=== PATIENT | female | born 1990 | race Caucasian/White ===

== ENCOUNTER 2016-12-03 18:04 | Emergency (ER) | payer MEDICAID ==
[2016-12-03] MEDS ORDERED: DiphenhydrAMINE 50 mg/ml Inj IVP STA (18:55)
[2016-12-03] MEDS ORDERED: Sodium Chloride 0.9% 1,000 ML IV ONE (18:57)
[2016-12-03] MEDS ORDERED: DiphenhydrAMINE 50 mg/ml Inj ONE (19:02)
[2016-12-03] MEDS ORDERED: Sodium Chloride 0.9% 1,000 ML ONE (19:03)
--- NOTE | 2016-12-03 19:11 | C.PDOC ---
History Of Present Illness 26 year old female presents to the ED with complaint of a constant headache associated with photophobia for the past 2 weeks. Patient states having 3 immunization shots prior to starting her new job. She took Tylenol PO to manage pain and get to work. Patient denies fever, nausea, numbness, weakness, tingling , falls, or recent trauma. Time Seen by Provider: 12/03/16 18:38 Chief Complaint (Nursing): Headache History Per: Patient History/Exam Limitations: no limitations Onset/Duration Of Symptoms: Persistent, Other (2 weeks ) Current Symptoms Are (Timing): Still Present Quality: "Pain" Associated Symptoms: Photophobia. denies: Nausea, Vomiting, Extremity Weakness Recent travel outside of the [place]: No Additional History Per: Patient Past Medical History Reviewed: Historical Data, Nursing Documentation, Vital Signs Vital Signs: Last Vital Signs Temp 98.1 F 12/03/16 20:52 Pulse 78 12/03/16 20:52 Resp 18 12/03/16 20:52 BP 124/72 12/03/16 20:52 Pulse Ox 99 12/03/16 20:52 - Medical History PMH: Gastritis Surgical History: Appendectomy, Hernia Repair Family History: States: Unknown Family Hx - Social History Hx Tobacco Use: No Hx Alcohol Use: No Hx Substance Use: No - Immunization History Hx Tetanus Toxoid Vaccination: Yes Hx Influenza Vaccination: Yes Hx Pneumococcal Vaccination: Yes Review Of Systems Constitutional: Negative for: Fever, Chills Eyes: Positive for: Other (photophobia ) Gastrointestinal: Negative for: Nausea, Vomiting Neurological: Positive for: Headache. Negative for: Weakness, Numbness Physical Exam - Physical Exam Appears: Well, Non-toxic, No Acute Distress Skin: Normal Color, Warm, Dry, No Rash Head: Atraumatic, Normacephalic Eye(s): bilateral: Normal Inspection, PERRL, EOMI Ear(s): Bilateral: Normal Oral Mucosa: Moist Throat: No Erythema, No Exudate Neck: Normal ROM, Supple Chest: Symmetrical Cardiovascular: Rhythm Regular, No Friction Rub, No Murmur Respiratory: Normal Breath Sounds, No Accessory Muscle Use, No Rales, No Rhonchi , No Wheezing Gastrointestinal/Abdominal: Soft, No Tenderness, No Guarding, No Rebound Back: Normal Inspection, No CVA Tenderness Extremity: Normal ROM, Capillary Refill (less than 2 seconds ), No Swelling Neurological/Psych: Oriented x3, Normal Speech, Normal Cognition, Normal Motor, Normal Sensation Gait: Steady ED Course And Treatment - Laboratory Results Result Diagrams: 12/03/16 19:17 12/03/16 19:17 O2 Sat by Pulse Oximetry: 100 (Room air) Pulse Ox Interpretation: Normal - CT Scan/US CT Head Other Rad Studies (CT/US): Interpreted By Me, Read By Radiologist, Radiology Report Reviewed CT/US Interpretation: EXAM: CT Head Without Intravenous Contrast. CLINICAL HISTORY: 26 years old, female; Condition or disease; Headache; Headache not specified; Additional info: Headache x 2 week. TECHNIQUE: Axial computed tomography images of the head/brain without intravenous contrast. All CT scans at. this facility use one or more dose reduction techniques, viz.: automated exposure control; ma/kV. adjustment per patient size (including targeted exams where dose is matched to indication; i.e. head);. or iterative reconstruction technique. COMPARISON: No relevant prior studies available. FINDINGS: Brain : No intracranial hemorrhage. No mass. No definite edema. Ventricles: No hydrocephalus. Bones/joints: No acute fracture. Soft tissues: Unremarkable. Sinuses: Few small retention cysts. Mastoid air cells: No mastoid effusion. Orbits: Unremarkable as visualized. IMPRESSION: 1. No acute intracranial abnormality. 2. Incidental/non-acute findings are described above. Medical Decision Making Medical Decision Making: Plan : * Head CT scan * Blood work * IV fluids administered * Toradol 30 mg IVP * Benadryl 25 mg IVP There are signs of meningismus or sepsis. NEck is supple and the patient remains afebrile. On re-exam, the patient reports improvement of symptoms. Lungs are CTA, heart is RRR, ambulatory in the ED with steady gait. abdomen is soft, non-tender and tolerating PO well. Follow up with the medical doctor within 1-2 days. Return if worsened. Disposition - Disposition Referrals: [facility] [Outside] Clinic,Med Surg [Primary Care Provider] - Disposition: HOME/ ROUTINE Disposition Time: 20:00 Condition: GOOD Additional Instructions: Follow up with the medical doctor within 1-2 days. Return if worsened. Prescriptions: Acetaminophen/Butalbital/Caf [Fioricet] 1 tab PO TID PRN #20 tab PRN Reason: Headache Ibuprofen [Motrin] 600 mg PO TID #21 tab Instructions: Migraine Headache (ED) Forms: [employer] (Monegasque) Print Language: IVORIAN - Clinical Impression Clinical Impression: Migraine, Headache - PA / SMALL BUSINESS DIRECTOR / Resident Statement MD/DO has reviewed & agrees with the documentation as recorded. - Scribe Statement The provider has reviewed the documentation as recorded by the Scribe Royce Gross All medical record entries made by the Scribe were at my direction and personally dictated by me. I have reviewed the chart and agree that the record accurately reflects my personal performance of the history, physical exam, medical decision making, and the department course for this patient. I have also personally directed, reviewed, and agree with the discharge instructions and disposition.
[2016-12-03 19:26] LABS: BASO % 0.4 % (0.0-2.0); EOS # 0.1 K/uL (0.0-0.7); EOS % 1.9 % (0.0-4.0); HEMATOCRIT 38.7 % (34.0-47.0); LYMPH # 2.2 K/uL (1.0-4.3); MEAN CELL VOLUME 87.6 fL (81.0-99.0); MEAN CORPUSCULAR HEMOGLOBIN 29.1 pg (27.0-31.0); MEAN CORPUSCULAR HGB CONC 33.2 g/dL (33.0-37.0); MONO # 0.3 K/uL (0.0-0.8); MONO % 6.6 % (0.0-10.0); RED CELL DISTRIBUTION WIDTH 13.5 % (11.5-14.5)
[2016-12-03 19:34] LABS: CHLORIDE 99 mmol/L (98-107); SODIUM 136 mmol/L (132-148)
[2016-12-03 19:35] LABS: POTASSIUM 3.6 mmol/L (3.6-5.2)
[2016-12-03 19:37] LABS: ALKALINE PHOSPHATASE 93 U/L (38-126); AST/SGOT 26 U/L (14-36); BILIRUBIN,TOTAL 0.4 mg/dL (0.2-1.3); BLOOD UREA NITROGEN 15 mg/dL (7-17); CARBON DIOXIDE 26 mmol/L (22-30); GFR AFRICAN-AMERICAN > 60; GLUCOSE,RANDOM 64 mg/dL (65-105)
[2016-12-03 19:38] LABS: ALT/SGPT 40 U/L (9-52); CALCIUM 9.7 mg/dl (8.6-10.4)
--- NOTE | 2016-12-03 20:24 | CT ---
EXAM: CT Head Without Intravenous Contrast CLINICAL HISTORY: 26 years old, female; Condition or disease; Headache; Headache not specified; Additional info: Headache x 2 week TECHNIQUE: Axial computed tomography images of the head/brain without intravenous contrast. All CT scans at this facility use one or more dose reduction techniques, viz.: automated exposure control; ma/kV adjustment per patient size (including targeted exams where dose is matched to indication; i.e. head); or iterative reconstruction technique. COMPARISON: No relevant prior studies available. FINDINGS: Brain: No intracranial hemorrhage. No mass. No definite edema. Ventricles: No hydrocephalus. Bones/joints: No acute fracture. Soft tissues: Unremarkable. Sinuses: Few small retention cysts. Mastoid air cells: No mastoid effusion. Orbits: Unremarkable as visualized. IMPRESSION: 1. No acute intracranial abnormality. 2. Incidental/non-acute findings are described above.
[2016-12-03 20:53] VITALS: BP 124/72; PULSE 78; RESP 18; TEMP 98.1
[2016-12-05 22:31] VITALS: O2SAT 100
== END 2016-12-03 20:53 | disposition home or self-care (01) ==
LOC: SUPCPDRO 18:04 → C.ER 18:04
DX: G43.909 Migraine, unspecified, not intractable, without status migrainosus (principal)
CPT/HCPCS: 70450; 80053; 85025; 96361; 96374; 96375; 99285; J1200; J1885; J2765; J7040

== ENCOUNTER 2017-01-30 17:51 | Emergency (ER) | payer MEDICAID ==
[2017-01-30 18:03] VITALS: BP 135/84; PULSE 90; RESP 18; TEMP 97.5; O2SAT 100
[2017-01-30 18:33] LABS: RBC URINE 1 /hpf (0-3); URINE BACTERIA OCC (<OCC); URINE BILIRUBIN NEGATIVE (NEGATIVE); URINE BLOOD NEGATIVE (NEGATIVE); URINE COLOR Yellow (YELLOW); URINE GLUCOSE (UA) NORMAL (Normal); URINE KETONE NEGATIVE (NEGATIVE); URINE LEUKOCYTE ESTERASE NEG Leu/uL (Negative); URINE PROTEIN NEGATIVE (NEGATIVE); URINE UROBILINOGEN NORMAL mg/dL (0.2-1.0); WBC URINE < 1 /hpf (0-5)
--- NOTE | 2017-01-30 18:41 | C.PDOC ---
History Of Present Illness 26 yr old female presents to the ER with complaints of lower abdominal pain for the past 3 days. Patient reports the pain is constant and when she has sexual intercourse. Also reports of vaginal discharge yesterday. Denies fever, chills, nausea, vomiting, diarrhea, dysuria, weakness or numbness. Time Seen by Provider: 01/30/17 18:10 Chief Complaint (Nursing): Abdominal Pain History Per: Patient History/Exam Limitations: no limitations Onset/Duration Of Symptoms: Days (3) Current Symptoms Are (Timing): Still Present Location Of Pain/Discomfort: Suprapubic Past Medical History Reviewed: Historical Data, Nursing Documentation, Vital Signs Vital Signs: Last Vital Signs Temp 97.5 F L 01/30/17 17:59 Pulse 90 01/30/17 17:59 Resp 18 01/30/17 17:59 BP 135/84 01/30/17 17:59 Pulse Ox 100 01/30/17 19:43 - Medical History PMH: Gastritis Surgical History: Appendectomy, Hernia Repair Family History: States: No Known Family Hx - Social History Hx Tobacco Use: No Hx Alcohol Use: No Hx Substance Use: No - Immunization History Hx Tetanus Toxoid Vaccination: No Hx Influenza Vaccination: No Hx Pneumococcal Vaccination: No Review Of Systems Except As Marked, All Systems Reviewed And Found Negative. Constitutional: Negative for: Fever, Chills Gastrointestinal: Positive for: Abdominal Pain (Suprapubic). Negative for: Nausea, Vomiting, Diarrhea Genitourinary: Positive for: Vaginal Discharge. Negative for: Dysuria Neurological: Negative for: Weakness, Numbness Physical Exam - Physical Exam Appears: Non-toxic, No Acute Distress Skin: Warm, Dry, No Rash Head: Atraumatic, Normacephalic Eye(s): bilateral: Normal Inspection Oral Mucosa: Moist Throat: No Erythema, No Exudate Neck: Normal ROM, Supple Chest: Symmetrical, No Tenderness Cardiovascular: Rhythm Regular Respiratory: Normal Breath Sounds Gastrointestinal/Abdominal: Soft, Tenderness (Suprapubic), No Guarding, No Rebound Back: Normal Inspection, No CVA Tenderness Pelvic: Normal External Exam, No Vaginal Bleeding, Vaginal Discharge (scant yellow/toney discharge), No Cervical Motion Tenderness, No Adnexal Tenderness, 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 Return if worsened Prescriptions: metroNIDAZOLE [Flagyl] 500 mg PO BID #14 tab Instructions: Bacterial Vaginosis (ED), Trichomoniasis (ED) Forms: [employer] (Turkmen) Print Language: MOSOTHO - Clinical Impression Clinical Impression: Bacterial vaginosis - PA / ROLL THREADER OPERATOR / Resident Statement MD/DO has reviewed & agrees with the documentation as recorded. - Scribe Statement The provider has reviewed the documentation as recorded by the Scribe Lori Astudillo All medical record entries made by the Scribe were at my direction and personally dictated by me. I have reviewed the chart and agree that the record accurately reflects my personal performance of the history, physical exam, medical decision making, and the department course for this patient. I have also personally directed, reviewed, and agree with the discharge instructions and disposition.
== END 2017-01-30 19:47 | disposition home or self-care (01) ==
LOC: C.ER 17:51
DX: N76.0 Acute vaginitis (principal)

== ENCOUNTER 2017-05-07 08:36 | Emergency (ER) | payer MEDICAID ==
--- NOTE | 2017-05-07 09:28 | C.PDOC ---
History Of Present Illness 26 year old female presents to the ED for evaluation of a cough, fever, throat pain, headache for the past few days. Patient is here with her son who has the same symptoms. Patient denies nausea, vomit, diarrhea, rash, recent travel. Time Seen by Provider: 05/07/17 08:58 Chief Complaint (Nursing): Cough, Cold, Congestion History Per: Patient History/Exam Limitations: no limitations Onset/Duration Of Symptoms: Days Current Symptoms Are (Timing): Still Present Location Of Pain: Throat, Headache Sick Contacts (Context): Family Member(s) (Son) Associated Symptoms: Fever, Sore Throat, Cough Ear Symptoms: Bilateral: None Recent travel outside of the [place]: No Additional History Per: Patient Past Medical History Reviewed: Historical Data, Nursing Documentation, Vital Signs Vital Signs: Last Vital Signs Temp 97.8 F 05/07/17 08:49 Pulse 104 H 05/07/17 08:49 Resp 20 05/07/17 08:49 BP 141/82 05/07/17 08:49 Pulse Ox 97 05/07/17 09:29 - Medical History PMH: Gastritis Surgical History: Appendectomy, Hernia Repair Family History: States: Unknown Family Hx - Social History Hx Tobacco Use: No Hx Alcohol Use: No Hx Substance Use: No - Immunization History Hx Tetanus Toxoid Vaccination: No Hx Influenza Vaccination: No Hx Pneumococcal Vaccination: No Review Of Systems Constitutional: Negative for: Fever, Chills ENT: Positive for: Throat Pain Cardiovascular: Negative for: Chest Pain Respiratory: Positive for: Cough. Negative for: Shortness of Breath Gastrointestinal: Negative for: Vomiting, Abdominal Pain Skin: Negative for: Rash Neurological: Positive for: Headache. Negative for: Weakness, Numbness Physical Exam - Physical Exam Appears: Non-toxic, No Acute Distress Skin: Normal Color, Warm, Dry, No Rash Head: Atraumatic, Normacephalic Eye(s): bilateral: Normal Inspection Ear(s): Bilateral: Normal Nose: No Discharge, No Deformity Oral Mucosa: Moist Throat: Normal, No Erythema, No Exudate Neck: Normal ROM, Supple Chest: Symmetrical Cardiovascular: Rhythm Regular, No Murmur Respiratory: Normal Breath Sounds, No Rales, No Rhonchi, No Wheezing Gastrointestinal/Abdominal: Soft, No Tenderness, No Guarding, No Rebound Extremity: Normal ROM, No Tenderness, No Swelling Neurological/Psych: Oriented x3, Normal Speech Gait: Steady ED Course And Treatment O2 Sat by Pulse Oximetry: 97 (On RA) Pulse Ox Interpretation: Normal Disposition - Disposition Referrals: Destiny Gross APN [Advanced Practice Nurse] - Disposition: HOME/ ROUTINE Disposition Time: 09:36 Condition: GOOD Additional Instructions: Follow up with the medical doctor within 1-2 days. Return if worsened. Prescriptions: Benzonatate [Tessalon Perles] 100 mg PO TID PRN #21 sgl PRN Reason: Cough Loratadine [Claritin] 10 mg PO DAILY #10 tab predniSONE [Prednisone] 10 mg PO BID #10 tab Instructions: Upper Respiratory Infection (ED) Forms: [employer] (Georgian), Work Excuse - Clinical Impression Clinical Impression: Upper respiratory infection - PA / BRINE TANK OPERATOR / Resident Statement MD/DO has reviewed & agrees with the documentation as recorded. - Scribe Statement The provider has reviewed the documentation as recorded by the Scribe Royce Gross All medical record entries made by the Scribe were at my direction and personally dictated by me. I have reviewed the chart and agree that the record accurately reflects my personal performance of the history, physical exam, medical decision making, and the department course for this patient. I have also personally directed, reviewed, and agree with the discharge instructions and disposition.
[2017-05-07 10:05] VITALS: BP 107/72; PULSE 90; RESP 18; TEMP 97.9; O2SAT 100
== END 2017-05-07 10:01 | disposition home or self-care (01) ==
LOC: C.ER 08:36
DX: J06.9 Acute upper respiratory infection, unspecified (principal)

== ENCOUNTER 2017-12-23 17:44 | Emergency (ER) | payer MEDICAID, OTHER ==
[2017-12-23 18:06] VITALS: RESP 20; BMI 42.9
--- NOTE | 2017-12-23 19:26 | C.PDOC ---
History Of Present Illness 27 year old female, G2, P1, A1, presents to the ED for evaluation. Patient states she had a positive home test yesterday. Patient also c/o diffuse lower abdominal pain for the past 2 days, that worsens with movement. Patient denies fever, chills, nausea, vomit, diarrhea, urinary symptoms, vaginal bleeding, vaginal discharge. Time Seen by Provider: 12/23/17 19:11 Chief Complaint (Nursing): Abdominal Pain History Per: Patient History/Exam Limitations: no limitations Onset/Duration Of Symptoms: Days (2) Current Symptoms Are (Timing): Still Present Location Of Pain/Discomfort: Diffuse, Suprapubic Radiation Of Pain To:: None Quality Of Discomfort: "Pain" Associated Symptoms: denies: Fever, Nausea, Vomiting, Diarrhea, Urinary Symptoms Exacerbating Factors: Movement Alleviating Factors: None Recent travel outside of the [place]: No Additional History Per: Patient Abnormal Vaginal Bleeding: No : 2 Para: 1 Miscarriage: 1 Past Medical History Reviewed: Historical Data, Nursing Documentation, Vital Signs Vital Signs: Last Vital Signs Temp 98.8 F 12/23/17 17:55 Pulse 97 H 12/23/17 17:55 Resp 20 12/23/17 17:55 BP 135/87 12/23/17 17:55 Pulse Ox 100 12/23/17 17:55 - Medical History PMH: Gastritis Surgical History: Appendectomy, Hernia Repair Family History: States: Unknown Family Hx - Social History Hx Tobacco Use: No Hx Alcohol Use: No Hx Substance Use: No - Immunization History Hx Tetanus Toxoid Vaccination: No Hx Influenza Vaccination: No Hx Pneumococcal Vaccination: No Review Of Systems Constitutional: Negative for: Fever, Chills Cardiovascular: Negative for: Chest Pain Respiratory: Negative for: Shortness of Breath Gastrointestinal: Positive for: Abdominal Pain. Negative for: Nausea, Vomiting, Diarrhea Genitourinary: Negative for: Vaginal Discharge, Vaginal Bleeding Musculoskeletal: Negative for: Back Pain Neurological: Negative for: Weakness, Numbness Physical Exam - Physical Exam Appears: Non-toxic, No Acute Distress Skin: Normal Color, Warm, Dry Head: Atraumatic, Normacephalic Eye(s): bilateral: Normal Inspection Neck: Normal ROM, Supple Chest: Symmetrical Cardiovascular: Rhythm Regular Respiratory: Normal Breath Sounds, No Rales, No Rhonchi, No Wheezing Gastrointestinal/Abdominal: Soft, Tenderness (diffuse lower abdomen, suprapubic mostly), No Guarding, No Rebound Extremity: Normal ROM, No Tenderness, No Swelling Neurological/Psych: Oriented x3, Normal Speech, Normal Cognition Gait: Steady ED Course And Treatment - Laboratory Results Result Diagrams: 12/23/17 19:24 12/23/17 19:24 Lab Interpretation: Abnormal (BHCG 747.14) O2 Sat by Pulse Oximetry: 100 (ON RA) Pulse Ox Interpretation: Normal - CT Scan/US Pelvic US Other Rad Studies (CT/US): Read By Radiologist, Radiology Report Reviewed CT/US Interpretation: EXAM: US Pelvis, Complete Transvaginal and Transabdominal. COMPARISON: None provided. CLINICAL HISTORY: Pain. TECHNIQUE: Transvaginal and transabdominal pelvic ultrasound (complete) with image documentation. FINDINGS: ENDOMETRIUM: A thickened endometrium is seen measuring 2.1 cm. UTERUS/CERVIX: The uterus appears within normal limits. No uterine fibroid or other mass evident. RIGHT OVARY: Normal Doppler flow. No abnormal mass. LEFT OVARY: Normal Doppler flow. No abnormal mass. FREE FLUID: Free fluid is seen in the pelvis. MISCELLANEOUS: Correlate with a quantitative beta hCG if clinically warranted and/or menses. No CT evidence of torsion is noted. IMPRESSION: 1. A thickened endometrium is seen measuring 2.1 cm. 2. Correlate with a quantitative beta hCG if clinically warranted and/or menses. 3. No CT evidence of torsion is noted. 4. Free fluid is seen in the pelvis. . Electronically signed on Dec 23, 2017 9:47:19 PM EDT by: Han Leblanc M.D., YOSELIN Certified By ABR & CBCCT. Fellowship Trained MRI and CT Specialist Reevaluation Time: 22:04 Reassessment Condition: Unchanged Medical Decision Making Medical Decision Making: Plan: * Labs * Urine culture * UA * Pelvic US Disposition - Disposition Referrals: [facility] [Outside] Disposition: HOME/ ROUTINE Disposition Time: 22:04 Condition: STABLE Additional Instructions: Keep your appointment with your doctor tomorrow as scheduled. Instructions: Threatened Miscarriage Forms: [employer] (Czech) - Clinical Impression Clinical Impression: Abdominal pain affecting - Scribe Statement The provider has reviewed the documentation as recorded by the Scribe Royce Gross All medical record entries made by the Scribe were at my direction and personally dictated by me. I have reviewed the chart and agree that the record accurately reflects my personal performance of the history, physical exam, medical decision making, and the department course for this patient. I have also personally directed, reviewed, and agree with the discharge instructions and disposition.
[2017-12-23 19:31] LABS: BASO % 0.3 % (0.0-2.0); EOS # 0.1 K/uL (0.0-0.7); EOS % 1.2 % (0.0-4.0); HEMOGLOBIN 12.6 g/dL (11.0-16.0); LYMPH # 2.2 K/uL (1.0-4.3); LYMPH % 41.2 % (20.0-40.0); MEAN CELL VOLUME 86.1 fL (81.0-99.0); MEAN CORPUSCULAR HEMOGLOBIN 28.5 pg (27.0-31.0); MEAN CORPUSCULAR HGB CONC 33.1 g/dL (33.0-37.0); MEAN PLATELET VOLUME 8.7 fL (7.2-11.7); MONO # 0.3 K/uL (0.0-0.8); MONO % 6.5 % (0.0-10.0); NEUT # 2.7 K/uL (1.8-7.0); NEUT % 50.8 % (50.0-75.0); RBC 4.43 Mil/uL (3.80-5.20); RED CELL DISTRIBUTION WIDTH 13.8 % (11.5-14.5); WHITE BLOOD COUNT 5.3 K/uL (4.8-10.8)
[2017-12-23 19:38] LABS: SQUAMOUS EPITHIAL 4 /hpf (0-5); URINE BACTERIA RARE (<OCC); URINE BILIRUBIN NEGATIVE (NEGATIVE); URINE BLOOD NEGATIVE (NEGATIVE); URINE CLARITY Clear (Clear); URINE COLOR Straw (YELLOW); URINE GLUCOSE (UA) NORMAL (Normal); URINE LEUKOCYTE ESTERASE NEG Leu/uL (Negative); URINE PROTEIN NEGATIVE (NEGATIVE); URINE UROBILINOGEN NORMAL mg/dL (0.2-1.0)
[2017-12-23 19:44] LABS: ALB/GLOB RATIO 1.2 (1.0-2.1); ALBUMIN 4.4 g/dL (3.5-5.0); ALT/SGPT 57 U/L (9-52); AST/SGOT 30 U/L (14-36); BLOOD UREA NITROGEN 8 mg/dL (7-17); CALCIUM 9.2 mg/dl (8.6-10.4); GFR NON-AFRICAN AMERICAN > 60
[2017-12-23 22:23] VITALS: BP 131/70; PULSE 81; TEMP 98.1; O2SAT 98
--- NOTE | 2017-12-24 10:51 | US ---
Date of service: 12/23/2017 HISTORY: Pain COMPARISON: None available. TECHNIQUE: Real-time transabdominal pelvic ultrasound was performed. In addition a transvaginal pelvic ultrasound was necessary to better depict pelvic anatomy. FINDINGS: UTERUS: Measures 9.0 x 4.6 x 5.7 cm. Anteverted. ENDOMETRIUM: Measures 2.1 cm in diameter. 2 x 2 x 2 mm cystic structure within the endometrium possibly early gestational sac. CERVIX: The cervix measures approximately 3.2 cm in diameter. RIGHT OVARY: Measures 2.3 x 1.6 x 2.6 cm. Blood flow is demonstrated. LEFT OVARY: Measures 3.2 x 2.1 x 2.4 cm. Blood flow is demonstrated. 1.9 x 1.6 x 1.9 cm suspected corpus luteal cyst. FREE FLUID: Small to moderate pelvic free fluid. OTHER FINDINGS: None. IMPRESSION: 2 x 2 x 2 mm cystic structure within a thickened endometrium, possibly early gestational sac. Recommend correlation with quantitative beta HCG and follow-up as indicated. Small to moderate free fluid in the pelvis cul-de-sac and adnexa regions. Preliminary impression was provided by [employer]. Study marked for PA review.
== END 2017-12-23 22:23 | disposition home or self-care (01) ==
LOC: C.ER 17:44
DX: O26.891 Other specified pregnancy related conditions, first trimester (principal); R10.30 Lower abdominal pain, unspecified; Z3A.00 Weeks of gestation of pregnancy not specified

== ENCOUNTER 2017-12-26 12:47 | Emergency (ER) | payer MEDICAID ==
[2017-12-26 12:47] VITALS: BMI 42.9
[2017-12-26 12:55] VITALS: RESP 16
--- NOTE | 2017-12-26 13:43 | C.PDOC ---
History Of Present Illness 27 y/o female , A1, pt comes into ER for a scheduled re-evaluation of BETA quant after was seen x3 days ago. Pt denies fever, chills, increase abdominal pain, nausea and vomiting, vaginal irritation or vaginal bleeding, UTI sx. Ambulate to Ed for evaluation, not in any apparent distress. Time Seen by Provider: 12/26/17 13:07 Chief Complaint (Nursing): Abdominal Pain History Per: Patient History/Exam Limitations: no limitations Onset/Duration Of Symptoms: Days Current Symptoms Are (Timing): Still Present Past Medical History Reviewed: Historical Data, Nursing Documentation, Vital Signs Vital Signs: Last Vital Signs Temp 98.5 F 12/26/17 12:52 Pulse 91 H 12/26/17 12:52 Resp 16 12/26/17 12:52 BP 115/81 12/26/17 12:52 Pulse Ox 100 12/26/17 12:52 - Medical History PMH: Gastritis Surgical History: Appendectomy, Hernia Repair Family History: States: Unknown Family Hx - Social History Hx Tobacco Use: No Hx Alcohol Use: No Hx Substance Use: No - Immunization History Hx Tetanus Toxoid Vaccination: No Hx Influenza Vaccination: No Hx Pneumococcal Vaccination: No Review Of Systems Except As Marked, All Systems Reviewed And Found Negative. Constitutional: Positive for: Other (re-evaluation for BETA). Negative for: Fever, Chills Gastrointestinal: Negative for: Nausea, Vomiting, Abdominal Pain Physical Exam - Physical Exam Appears: Well, Non-toxic, No Acute Distress Skin: Warm, Dry Head: Normacephalic Eye(s): bilateral: PERRL Oral Mucosa: Moist Throat: No Erythema Neck: Trachea Midline, No Midline Cervical Tenderness, No Paracervical Tenderness Chest: Symmetrical Cardiovascular: Rhythm Regular, No Murmur, No JVD Respiratory: No Decreased Breath Sounds, No Accessory Muscle Use, No Stridor, No Wheezing Gastrointestinal/Abdominal: Soft, No Tenderness, No Distention, No Guarding Back: No CVA Tenderness Extremity: Normal ROM (x4), No Deformity, No Swelling Neurological/Psych: Oriented x3, Normal Speech Gait: Steady ED Course And Treatment - Laboratory Results Urine POC: Positive O2 Sat by Pulse Oximetry: 100 (RA) Pulse Ox Interpretation: Normal Progress Note: Impression: repeat BETA lab. Plans: -- beta-HCG. -- US OB preg. On re-eval, pt is afebrile, hemodynamically stable. Non-toxic. Tolerate PO well in ED. PulseOx 100% on RA. ENT: no acute findings. Uvula midline, no edema. Neck: Supple, (-) JVD. Lungs: CTA B/L, BS equal B/L. Abd: Soft, non- tender. Neurologically intact. beta quant compare from previous visit 2days ago and double, as expected for normal . US results review, visualized this time gestation sac. results review and discussed with pt. Pt has clinical findings c/w abd. pain early . Pt advised and ref. to f/u with [employer]library loan services librarian in 2-3 days for re-eavl. return if any new changes. Disposition Counseled Patient/Family Regarding: Studies Performed, Diagnosis, Need For Followup - Disposition Referrals: [facility] [Outside] [facility] [Outside] Disposition: HOME/ ROUTINE Disposition Time: 14:47 Condition: STABLE Additional Instructions: Encourage fluids vitamins Follow up with [employer] OFFICER in 2-3 days for re-evaluation. return if any new changes. Instructions: - The First Month Forms: [employer] (Slovak) - Clinical Impression Clinical Impression: Abdominal pain affecting , - PA / MERCHANDISE DISPLAYER / Resident Statement / has reviewed & agrees with the documentation as recorded. - Scribe Statement The provider has reviewed the documentation as recorded by the Vincent Narayanan Do All medical record entries made by the Scribe were at my direction and personally dictated by me. I have reviewed the chart and agree that the record accurately reflects my personal performance of the history, physical exam, medical decision making, and the department course for this patient. I have also personally directed, reviewed, and agree with the discharge instructions and disposition.
[2017-12-26 15:03] VITALS: BP 121/84; PULSE 101; TEMP 98.3; O2SAT 98
--- NOTE | 2017-12-26 15:16 | US ---
Date of service: 12/26/2017 HISTORY: pain: Left central. 11/24/2017 suggesting gestational age of approximately 4 weeks 4 days. COMPARISON: Transabdominal and transvaginal pelvic ultrasound 12/23/2017. no prior gestational sac demonstrated previously. TECHNIQUE: Ultrasonography of was performed using transvaginal technique in longitudinal and transverse projections including color Doppler technique. FINDINGS: UTERUS: Measures 9.9 x 5.1 x 6.5 cm. Uterus is enlarged without focal myometrial mass or cysts appreciated. Uterus is anteverted. ENDOMETRIUM: Within the intracavity there is a gestational sac measuring 0.5 cm mean diameter with a small yolk sac likely present. pole is not yet visible. Decidual reaction is developing and appears mildly inhomogeneous but nonfocal. CERVIX: Cervix measures 3.5 cm without focal abnormality related. RIGHT OVARY: Measures 2.8 x 1.7 x 2.3 cm. No solid mass. Normal flow. LEFT OVARY: Measures 2.8 x 3.2 x 3.0 cm. No solid mass. Normal flow. Left ovarian cyst measures 2.3 x 1.7 x 1.9 cm and may reflect corpus luteum cyst. FREE FLUID: No significant free fluid noted. OTHER FINDINGS: None. IMPRESSION: Gestational sac is present with possible yolk sac but no pole at this time but represent interval improvement compared to prior ultrasound demonstrating no gestational sac in the endometrial cavity. No obvious hemorrhage is seen related to the decidual reaction though inhomogeneous echotexture seen intrinsically. Consider probable early 1st trimester potentially viable intrauterine gestation less than 5 weeks estimated gestational age. Failure of gestation is not excluded. No definite ectopic gestation appreciated definitively. Serial beta HCG analysis is recommended as well as follow-up ultrasound in 1 week.
== END 2017-12-26 15:09 | disposition home or self-care (01) ==
LOC: C.ER 12:47
DX: O26.91 Pregnancy related conditions, unspecified, first trimester (principal); R10.9 Unspecified abdominal pain; Z3A.00 Weeks of gestation of pregnancy not specified

== ENCOUNTER 2018-03-23 18:01 | Emergency (ER) | payer MEDICAID ==
[2018-03-23 18:19] VITALS: BMI 41.5
[2018-03-23 18:21] VITALS: O2SAT 100
--- NOTE | 2018-03-23 19:09 | C.PDOC ---
History Of Present Illness 27 year old female LMP 11/22/2017 presents to the ER with suprapubic abdominal pain for the past 3 days with decreased movement. Patient called her wet nurse who told her to come in. Denies urinary complaints, vaginal disc harge, vaginal bleeding, diarrhea, or trauma. Patient reports Hx of appendectomy and hernia repair. Denies fever, chills, night sweats, rash, nausea, vomiting, constipation, diarrhea, or dark/bloody stools. Patient took tylenol for the past yesterday. Time Seen by Provider: 03/23/18 19:09 Chief Complaint (Nursing): Abdominal Pain History Per: Patient History/Exam Limitations: no limitations Onset/Duration Of Symptoms: Days (3) Current Symptoms Are (Timing): Still Present Location Of Pain/Discomfort: Suprapubic Quality Of Discomfort: Unable To Describe Associated Symptoms: Other (Decreased movement) Exacerbating Factors: None Alleviating Factors: None Recent travel outside of the [place]: No Abnormal Vaginal Bleeding: No Past Medical History Reviewed: Historical Data, Nursing Documentation, Vital Signs Vital Signs: Last Vital Signs Temp 97.9 F 03/23/18 18:19 Pulse 105 H 03/23/18 18:19 Resp 18 03/23/18 18:19 BP 113/76 03/23/18 18:19 Pulse Ox 100 03/23/18 18:19 - Medical History PMH: Gastritis Surgical History: Appendectomy, Hernia Repair Family History: States: Unknown Family Hx - Social History Hx Tobacco Use: No Hx Alcohol Use: No Hx Substance Use: No - Immunization History Hx Tetanus Toxoid Vaccination: No Hx Influenza Vaccination: No Hx Pneumococcal Vaccination: No Review Of Systems Except As Marked, All Systems Reviewed And Found Negative. Gastrointestinal: Positive for: Abdominal Pain Physical Exam - Physical Exam Appears: Non-toxic Skin: Normal Color, Warm, Dry Head: Atraumatic, Normacephalic Eye(s): bilateral: Normal Inspection Oral Mucosa: Moist Neck: Normal, Supple Chest: Symmetrical, No Tenderness Cardiovascular: Rhythm Regular Respiratory: Normal Breath Sounds, No Rales, No Rhonchi, No Wheezing Gastrointestinal/Abdominal: Soft, No Tenderness Back: No CVA Tenderness Extremity: Normal ROM (x4) Neurological/Psych: Oriented x3, Normal Speech Gait: Steady ED Course And Treatment - Laboratory Results Result Diagrams: 03/23/18 20:29 03/23/18 20:29 O2 Sat by Pulse Oximetry: 100 (Room air) Pulse Ox Interpretation: Normal Medical Decision Making Medical Decision Making: demise vs Well check Single live IUP w/ HR of 154 w/ good motion labs largely unremarkable no complaint of vaginal d/c or bleeding UA w/ +occ bacteria will rx pt comfortable, in NAD, clear for d/c home, pt is agreeable to plan. Disposition - Disposition Referrals: [facility]Outside] [facility] [Outside] [facility]] Catrina Raymond MD [Staff Provider] - Disposition: HOME/ ROUTINE Disposition Time: 22:22 Condition: GOOD Additional Instructions: ADONAY LUCIANO, thank you for letting us take care of you today. Your provider was Moustapha Lott and you were treated for 17 WEEKS PREG LOWER ABD PAIN. The emergency medical care you received today was directed at your acute symptoms. If you were prescribed any medication, please fill it and take as directed. It may take several days for your symptoms to resolve. Return to the Emergency Department if your symptoms worsen, do not improve, or if you have any other problems. Please contact your doctor or call one of the physicians/clinics you have been referred to that are listed on the Patient Visit Information form that is includ ed in your discharge packet. Bring any paperwork you were given at discharge with you along with any medications you are taking to your follow up visit. Our treatment cannot replace ongoing medical care by a primary care provider outside of the emergency department. [facility] your care today. If you had an X-Ray or CT scan: A Radiologist will review the ED reading if any change in treatment is needed we will contact you. If you had a blood, urine, or wound culture: It will take several days for the results, if any change in treatment is needed we will contact you. If you had an STI test: It will take 48 hours for the results. Please call after 1 week if you have not heard back. Prescriptions: Nitrofurantoin Macrocrystal [Nitrofurantoin] 100 mg PO BID 5 Days #10 capsule Instructions: Urinary Tract Infection, Adult (DC), Urinary Tract Infections in Adults, Medications and , Avoiding Infections in , - The Fifth Month Forms: [facility] (Hebrew) - Clinical Impression Clinical Impression: , UTI (urinary tract infection) - Scribe Statement The provider has reviewed the documentation as recorded by the Scribe Enrike Phillips All medical record entries made by the Scribe were at my direction and personally dictated by me. I have reviewed the chart and agree that the record accurately reflects my personal performance of the history, physical exam, medical decision making, and the department course for this patient. I have also personally directed, reviewed, and agree with the discharge instructions and disposition.
[2018-03-23 20:37] LABS: BASO % 0.2 % (0.0-2.0); EOS # 0.1 K/uL (0.0-0.7); EOS % 2.6 % (0.0-4.0); HEMOGLOBIN 11.3 g/dL (11.0-16.0); LYMPH # 1.6 K/uL (1.0-4.3); LYMPH % 32.3 % (20.0-40.0); MEAN CELL VOLUME 86.3 fL (81.0-99.0); MEAN CORPUSCULAR HEMOGLOBIN 28.2 pg (27.0-31.0); MEAN CORPUSCULAR HGB CONC 32.7 g/dL (33.0-37.0); MEAN PLATELET VOLUME 8.8 fL (7.2-11.7); MONO # 0.3 K/uL (0.0-0.8); MONO % 6.2 % (0.0-10.0); NEUT % 58.7 % (50.0-75.0); NRBC % 0.1 % (0.0-2.0); RBC 4.01 Mil/uL (3.80-5.20); WHITE BLOOD COUNT 5.1 K/uL (4.8-10.8)
[2018-03-23 20:49] LABS: ALB/GLOB RATIO 1.1 (1.0-2.1); ALBUMIN 3.8 g/dL (3.5-5.0); ALT/SGPT 29 U/L (9-52); AST/SGOT 32 U/L (14-36); BLOOD UREA NITROGEN 11 mg/dL (7-17); CALCIUM 8.9 mg/dl (8.6-10.4); GFR NON-AFRICAN AMERICAN > 60
[2018-03-23 20:58] LABS: SQUAMOUS EPITHIAL 4 /hpf (0-5); URINE BACTERIA OCC (<OCC); URINE BILIRUBIN NEGATIVE (NEGATIVE); URINE BLOOD NEGATIVE (NEGATIVE); URINE CLARITY Hazy (Clear); URINE COLOR Yellow (YELLOW); URINE GLUCOSE (UA) NORMAL (Normal); URINE LEUKOCYTE ESTERASE NEG Leu/uL (Negative); URINE PROTEIN NEGATIVE (NEGATIVE); URINE UROBILINOGEN NORMAL mg/dL (0.2-1.0)
[2018-03-23 22:23] VITALS: BP 119/78; PULSE 88; RESP 20; TEMP 98.3
--- NOTE | 2018-03-24 11:13 | US ---
Date of service: 03/23/2018 PROCEDURE: Obstetrical ultrasound examination, limited HISTORY: abd pain, decreased movement COMPARISON: 08/25/2017 TECHNIQUE: Transabdominal FINDINGS: There is a single live intrauterine gestation in cephalic presentation. The heart rate is 154 beats per minute. A grossly normal quantity of amniotic fluid is visualized. A normal posterior placenta is identified. There is no evidence of placenta previa. The cervix is closed and measures 4.0 cm in length. biometry yields a gestational age of 17 weeks 4 days. The BETTY by ultrasound is 08/27/2018. Limited review of anatomy demonstrates a 4 chamber heart. The anterior abdominal wall is intact. A three-vessel umbilical cord is identified. There is fluid distending the stomach and urinary bladder. No gross abnormality of the spine is identified. anatomy has not been fully evaluated at this time. IMPRESSION: Single live intrauterine gestation of approximately 17 weeks 4 days gestational age. BETTY 08/27/2018. Cervix long and closed. heart rate 154. No gross anatomic abnormality. Posterior placenta. No previa. Cephalic presentation. The preliminary findings for this examination were reported by [facility] at 03/23/2018 at 10:12 p.m.. There is concurrence of this report with the preliminary findings.
== END 2018-03-23 23:01 | disposition home or self-care (01) ==
LOC: C.ER 18:01
DX: O23.42 Unspecified infection of urinary tract in pregnancy, second trimester (principal); Z3A.17 17 weeks gestation of pregnancy

== ENCOUNTER 2018-05-06 13:38 | Emergency (ER) | payer MEDICAID | END 2018-05-06 17:19 | disposition home or self-care (01) | LOC: C.EROB 13:38 ==

== ENCOUNTER 2018-07-15 14:13 | Emergency (ER) | payer OTHER, MEDICAID | END 2018-07-15 17:15 | disposition home or self-care (01) | LOC: C.EROB 14:13 ==